=== PATIENT | male | born 1970 | race African-American/Black ===

== ENCOUNTER 2016-10-10 21:54 | Observation (INO) | payer OTHER ==
[~2016-10-10] VITALS: Ht 172.7 cm; Wt 91.0 kg
[2016-10-10 22:29] LABS: EOSINOPHIL (%) 2.9 % (0-5); EOSINOPHIL COUNT 0.4 K/uL (0-0.3); IMMATURE GRANULOCYTE (%) 0.3 % (0.0-0.7); IMMATURE GRANULOCYTE COUNT 0.4 K/uL; LYMPHOCYTE COUNT 2.9 K/uL (1.0-2.8); MCHC 37.3 G/DL (30.0-36.0); MEAN PLAT.VOLUME 9.3 uM^3 (9.0-12.4); NEUTROPHIL (%) 69.4 % (45-76); NEUTROPHIL COUNT 9.9 K/uL (1.8-6.4); PLATELET COUNT 231 K/uL (156-360); RBC DIS.WIDTH-CV 12.4 % (11.8-14.6); RBC DIS.WIDTH-SD 36.5 % (39-53); RED BLOOD COUNT 4.94 M/uL (4.00-5.50); WHITE BLOOD COUNT 14.3 K/uL (4.1-10.2)
[2016-10-10 22:42] LABS: AMYLASE 55 IU/L (1-118); CHLORIDE 108 mEq/L (99-109); POTASSIUM 3.4 mEq/L (3.7-5.4); SODIUM 141 mEq/L (136-147)
[2016-10-10 22:44] LABS: GLUCOSE 103 mg/dL (70-99)
[2016-10-10 22:45] LABS: ANION GAP 10 MEQ/L (2-14)
[2016-10-10 22:47] LABS: SERUM ETHYL ALCOHOL < 10 mg/dL
[2016-10-10 22:48] LABS: GFR ESTIMATE (CALCULATED) > 59 mL/min/; UREA NITROGEN (BUN) 14 mg/dL (9-23)
[2016-10-10 22:51] LABS: LIPASE 20 U/L (1.0-51.0)
[2016-10-10 23:29] LABS: TROP-I INTERPRETATION NEGATIVE; TROPONIN-I 0.01 ng/mL (0.0-0.30)
[2016-10-11 01:26] LABS: ADD MIUA? NO; BILIRUBIN NEGATIVE; BLOOD NEGATIVE; COLOR YELLOW ((YELLOW)); GLUCOSE (STRIP) NEGATIVE; KETONES 5; LEUKOCYTES NEGATIVE; NITRITE NEGATIVE; PROTEIN (STRIP) 30; UCUL ADDED? NO
[2016-10-11 02:10] LABS: AMPHETAMINE PRESUMPTIVE POSITIVE (500 ng/mL); BENZODIAZEPINES NEGATIVE (150 ng/mL); COCAINE NEGATIVE (150 ng/mL); METHADONE NEGATIVE (200 ng/mL); METHAMPHETAMINE NEGATIVE (500 ng/mL); OPIATES (MORPHINE) NEGATIVE (100 ng/mL); PHENCYCLIDINE NEGATIVE (25 ng/mL); THC CANNABINOIDS NEGATIVE (50 ng/mL); TRICYCLIC ANTIDEPRESSANTS NEGATIVE (300 ng/mL)
[2016-10-11 02:11] LABS: ADD MEDTOX COMMENT Y; BARBITURATES NEGATIVE (200 ng/mL); INTERNAL CONTROLS VALID? YES; OXYCODONE NEGATIVE (100 ng/mL); PROPOXYPHENE NEGATIVE (300 ng/mL)
[2016-10-11 10:20] LABS: TROP-I INTERPRETATION NEGATIVE; TROPONIN-I < 0.01 ng/mL (0.0-0.30)
[2016-10-11 14:14] VITALS: BP 126/69
[2016-10-11 20:05] VITALS: BP 145/70
[2016-10-11 23:37] VITALS: BP 152/87
[2016-10-12 03:38] VITALS: BP 161/83
[2016-10-12 07:32] VITALS: BP 156/92
[2016-10-12 16:53] VITALS: BP 180/104
[2016-10-13 00:51] VITALS: BP 152/83
[2016-10-13 07:40] VITALS: BP 160/98
[2016-10-13 09:14] LABS: EOSINOPHIL (%) 4.5 % (0-5); EOSINOPHIL COUNT 0.4 K/uL (0-0.3); HEMATOCRIT 42.6 % (38.0-50.0); IMMATURE GRANULOCYTE (%) 0.2 % (0.0-0.7); LYMPHOCYTE COUNT 1.8 K/uL (1.0-2.8); MCH 29.7 PG (29.0-34.0); MCHC 33.6 G/DL (30.0-36.0); MEAN PLAT.VOLUME 9.8 uM^3 (9.0-12.4); MONOCYTE COUNT 0.6 K/uL (0-0.8); NEUTROPHIL (%) 67.2 % (45-76); NEUTROPHIL COUNT 5.8 K/uL (1.8-6.4); PLATELET COUNT 206 K/uL (156-360); RBC DIS.WIDTH-CV 12.8 % (11.8-14.6); RBC DIS.WIDTH-SD 40.8 % (39-53); RED BLOOD COUNT 4.81 M/uL (4.00-5.50)
[2016-10-13 09:27] LABS: MCV 88.6 FL (86-99); WHITE BLOOD COUNT 8.7 K/uL (4.1-10.2)
[2016-10-13 09:39] LABS: ALKALINE PHOSPHATASE 50 IU/L (3-129); ANION GAP 8 MEQ/L (2-14); CHLORIDE 104 MEQ/L (99-109); GFR ESTIMATE (CALCULATED) > 59 mL/min/; GLUCOSE 106 mg/dL (70-99); MAGNESIUM 1.6 mg/dl (1.3-2.7); POTASSIUM 3.6 MEQ/L (3.7-5.4); SAMPLE HEMOLYSIS CHECK 0; SAMPLE ICTERIC CHECK 0; SAMPLE LIPEMIA CHECK 0; SODIUM 139 MEQ/L (136-147); TOTAL BILIRUBIN 0.8 MG/DL (0.0-1.0); UREA NITROGEN (BUN) 12 mg/dL (9-23)
[2016-10-13 11:10] VITALS: BP 160/102
[2016-10-13] MEDS ORDERED: LISINOPRIL20 MG PO (11:48)
[2016-10-13] MEDS ORDERED: HYDROCHLOROTHIA25 MG PO (11:49)
[2016-10-13] MEDS ORDERED: MOTRIN800 MG PO (11:51)
[2016-10-13] MEDS ORDERED: NIFEDIPINE ER30 MG PO (14:14)
== END 2016-10-13 15:10 | disposition home or self-care (01) ==
LOC: EDBD 21:54 → EME 21:54 → TRA 21:54 → EDOF 10-11 02:03 → 3EAST 10-11 02:03
PROVIDERS: Emergency Medicine; Internal Medicine; Surgery
DX: I16.9 Hypertensive crisis, unspecified (principal); Z91.128 Patient's intentional underdosing of medication regimen for other reason; T46.5X6A Underdosing of other antihypertensive drugs, initial encounter; T43.625A Adverse effect of amphetamines, initial encounter; R41.82 Altered mental status, unspecified; I10 Essential (primary) hypertension; G89.11 Acute pain due to trauma; M54.2 Cervicalgia; M54.89 Other dorsalgia; R56.9 Unspecified convulsions; E87.6 Hypokalemia; V49.40XA Driver injured in collision with unspecified motor vehicles in traffic accident, initial encounter; Y92.411 Interstate highway as the place of occurrence of the external cause; Y99.0 Civilian activity done for income or pay
CPT/HCPCS: 70450; 71260; 72125; 72129; 72132; 74177; 80048; 80053; 81003; 82150; 83690; 83735; 84100; 84484; 84999; 85025; 86850; 86900; 86901; 93005; 99281; 99285; G0378; G0480; J0360; J1885; J2060; J2270; J2405; J3360; J7120